=== PATIENT | male | born 1950 | race Caucasian/White ===

== ENCOUNTER → 2025-07-20 11:50 | Outpatient (REF) | payer MEDICARE, SELFPAY ==
[2025-07-20 16:31] LABS: PSA, Total - Screen 2.95 ng/ml (0.0-4.0)
== END ==
LOC: HWLAB 11:50
PROVIDERS: FAMILY PHYSICIAN Internal Medicine
DX: Z12.5 Encounter for screening for malignant neoplasm of prostate (principal)
CPT/HCPCS: 36415; G0103